=== PATIENT | male | born 1975 | race African-American/Black ===

== ENCOUNTER 2018-03-22 11:53 | Observation (INO) | payer OTHER, SELFPAY ==
[~2018-03-22 11:53] MED LIST: ISOVUE-370 76%-LOCM 1 ML ONE
[2018-03-22 12:46] LABS: Mean Corpuscular HGB CONC 33.3 g/dL (32.0-36.0); Mean Corpuscular Hemoglobin 26.2 pg (27.0-31.0); Mean Corpuscular Volume 78.7 fL (78.0-98.0); Mean Platelet Volume 9.3 fL (7.4-10.4); Platelet Count 260 thou/uL (130-400); Red Blood Cell (RBC) Count 5.36 mill/uL (4.70-6.10); White Blood Cell (WBC) Count 3.8 thou/uL (4.8-10.8)
[2018-03-22 12:59] LABS: ALT (SGPT) 20 U/L (8-55); AST (SGOT) 19 U/L (5-34); Albumin 4.1 g/dL (3.5-5.0); Alkaline Phosphatase 77 U/L (40-150); Anion Gap 14 mmol/L (10-20); BUN (Urea Nitrogen) 16 mg/dL (8.9-20.6); Bilirubin, Total 0.2 mg/dL (0.2-1.2); CK (CPK) 206 U/L (30-200); Calc. Creatinine Clearance 0 mL/min (70-130); Calcium 9.4 mg/dL (7.8-10.44); Carbon Dioxide 23 mmol/L (22-29); Chloride 103 mmol/L (98-107); Estimated GFR-MDRD 71; Globulin 3.9 g/dL (2.4-3.5); Glucose 121 mg/dL (70-105); Lipase 31 U/L (8-78); Potassium 3.3 mmol/L (3.5-5.1); Sodium 137 mmol/L (136-145)
[2018-03-22 13:04] LABS: CKMB 0.7 ng/mL (0-6.6); Troponin I 0.013 ng/mL (< 0.028)
[2018-03-22 13:14] LABS: Eosinophils 1 % (0-10); Lymphocytes 69 % (21-51); MDiff Complete? YES; Monocytes 8 % (0-10); Neutrophil 22 % (42-75); PLT Morphology Comment Appears Adequate
[2018-03-22] MEDS ORDERED: Lorazepam 2 MG/ML VIAL ONE (13:33)
--- NOTE | 2018-03-22 13:38 | RAD ---
UPRIGHT PORTABLE CHEST 1 VIEW: Date: 03/22/18 HISTORY: 42-year-old male with history of chest pain and abdominal pain. COMPARISON: 03/27/13. FINDINGS: Monitor leads overlie the chest. Heart size within normal limits. Right rib deformities with some ass ociated sclerosis, stable. No confluent pneumonia, overt edema, or pleural effusion. IMPRESSION: No acute intrathoracic disease. Right rib deformities with some associated sclerosis. POS: [facility]
[2018-03-22] MEDS ORDERED: diphenhydrAMINE 25 MG CAP ONE (14:03)
[2018-03-22] MEDS ORDERED: Metoclopramide HCl 10 MG/2 ML VIAL ONE (14:03)
--- NOTE | 2018-03-22 14:49 | CT ---
ABDOMEN AND PELVIC CT SCAN WITH IV CONTRAST: History: 42-year-old male with history of abdominal pain. Comparison: 02-02-17 FINDINGS: There is again noted to be a stable sclerotic margin expansile process in what appears to be the 7th right lateral rib, unchanged from the prior study. The lung bases appear clear. There is a 0.8 cm cristian meter focus of minimal increased nodular enhancement in the anterior right lobe of the liver, probabl y a very small flash-filling benign hemangioma, stable from the prior study. There is a suggestion of some mild fatty change in the liver with some fatty sparring adjacent to the gallbladder. The gallbl adder, pancreas, spleen, and adrenal glands are unremarkable. No evidence for renal calculus or acute obstruction. Normal appearing appendix. No intraabdominal mass, abscess, adenopathy or abnormal f luid collection. Moderate to severe lumbar spinal canal stenosis at L4-5. IMPRESSION: No significant acute process in the abdomen or pelvis. Stable expansile right rib bone lesion which i s nonaggressive and unchanged from 02-02-17. Small stable focal area of contrast enhancement in the rig ht lobe of the liver, probably a small flash-filling benign hemangioma. Probable mild fatty changes i n the liver. No evidence for other significant acute process in the abdomen or pelvis. POS: [facility]
[2018-03-22] MEDS ORDERED: Ondansetron PF 4 MG/2 ML Vial ONE (15:33)
[2018-03-22] MEDS ORDERED: Labetalol HCl 100 MG/20 ML VIAL ONE (16:00)
--- NOTE | 2018-03-22 16:22 | CT ---
BRAIN CT WITHOUT IV CONTRAST: Date: 03/22/18 HISTORY: 42-year-old male with abdominal pain, elevated blood pressure. FINDINGS: This exam was obtained about 1.5 hours after a prior postcontrast study, so there is some minimal res idual contrast within the brain vasculature. No focal mass or midline shift. No intra or extra-axial hemorrhage. Sinuses and mastoids are clear. IMPRESSION: No acute intracranial process. No mass or bleed. POS: [facility]
[2018-03-22] MEDS ORDERED: hydrALAZINE 20 MG/ML VIAL ONE (16:26)
[2018-03-22 18:06] LABS: Troponin I 0.021 ng/mL (< 0.028)
[2018-03-22] MEDS ORDERED: Ondansetron PF 4 MG/2 ML Vial IVP PRN (19:20)
[2018-03-22] MEDS ORDERED: Ondansetron ODT 4 MG TAB SL PRN (19:20)
[2018-03-22] MEDS ORDERED: hydrALAZINE 20 MG/ML VIAL SLOW IVP PRN (19:22)
[2018-03-22] MEDS ORDERED: Acetaminophen 325 MG TAB PO PRN (19:22)
[2018-03-22] MEDS ORDERED: Calcium Carbonate 500 MG ChewTAB PO PRN (19:22)
[2018-03-22] MEDS ORDERED: Sodium Chloride 0.9% 1,000 ML IV SCH (19:30)
[2018-03-22] MEDS ORDERED: Potassium Chloride 20 MEQ TAB PO SCH (19:45)
[2018-03-22] MEDS: Metoprolol Tartrate 25 MG TAB PO SCH (20:19)
[2018-03-22 20:46] LABS: Troponin I 0.026 ng/mL (< 0.028)
[2018-03-22] MEDS ORDERED: Lorazepam 2 MG/ML VIAL SLOW IVP PRN (22:08)
--- NOTE | 2018-03-23 01:26 | HP ---
PRIMARY CARE PHYSICIAN: [facility]. CHIEF COMPLAINT: Feeling weird. HISTORY OF PRESENT ILLNESS: Mr. Newman is a pleasant 42-year-old gentleman that has a history of hy pertension. He says he has had hypertension since he has been 17 years old. He says that a few maggie hs ago, he lost his job and as a result, he has not been able to get his medications. He started "no t feeling well" several months ago and says that he had some pressure behind his eyes yesterday and n ot feeling well is a constellation of symptoms of headache pressure, abdominal discomfort, nausea, an d just generally poor well being. He says that he went to the [facility], and they prescr ibed him a blood pressure medicine, I believe it was hydrochlorothiazide. He is not sure which medic ation he got first. Then, says that he came back to have some lab work done and they checked his blo od pressure and put him on 2 other additional medications, possibly metoprolol and clonidine at that time, he brings the bottles in. He says that after being given the medications, he actually started feeling worse. He was starting having some nausea, vomiting, feeling lightheaded and some chest pain . For this reason, he came to the emergency room. There, he was found to have fluctuating blood pre ssure, but most of all it was elevated, sometimes as high as the 160-180/100 diastolic. He also had a CT scan of the brain as well as CT scan of the abdomen which were essentially negative. Lab work w as significant for slightly low potassium and an elevated creatinine, but otherwise no other worrisom e findings. He is felt to have hypertensive urgency and possibly side effects to medications as the cause of his symptoms and is being placed in observation for this. REVIEW OF SYSTEMS: The systems were reviewed and are negative except for that mentioned in the histo ry of present illness. PAST MEDICAL HISTORY: Significant for hypertension. 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 He has even has had a bone marrow biopsy done to eval uate this. PAST SURGICAL HISTORY: Bone marrow biopsy. ALLERGIES: He says he believes is lisinopril, but he is not sure. SOCIAL HISTORY: He is single. He has 5 children. He is a nonsmoker and nondrinker. FAMILY HISTORY: Significant for hypertension, coronary artery disease, diabetes, and kidney disease, all in his mother. CURRENT MEDICATIONS: Include hydrochlorothiazide 12.5 mg daily, metoprolol 25 mg twice a day and mary nidine 0.1 mg twice daily. PHYSICAL EXAMINATION: GENERAL: He is alert and oriented. He appears to be in no acute distress. He is well-developed, we ll-nourished. He has a slightly flat affect and he makes very poor eye contact. VITAL SIGNS: Blood pressure currently is 138/73, heart rate 63, respiratory rate is 16, temperature is 98.0. HEENT: Pupils are equal, round, and reactive. Extraocular muscles are intact. His sclerae are anic teric. Throat: There was no erythema, no exudates. Ears: Tympanic membranes are pearly quiñones. The re was no fluid behind the drum. There was no redness. NECK: There is no adenopathy, no bruits, no jugular venous distention. LUNGS: Clear to auscultation. There was no wheezing, no rales, no rhonchi. CARDIOVASCULAR: He had a normal S1, S2. There is no S3 or S4. No murmurs, clicks or rubs. ABDOMEN: Slightly obese, it is soft, it is nontender, nondistended. Positive for bowel sounds. The re is no rebound, no guarding. EXTREMITIES: There is no clubbing, cyanosis, no edema, no joint tenderness, no joint effusions. No warmth. He has got palpable dorsalis pedis pulses bilaterally. NEUROLOGIC: His cranial nerves II-XII are grossly intact. His muscle strength is 5/5 in both his up per and lower extremities. SKIN/INTEGUMENT. There are no skin changes. No rash. LABORATORY DATA AND IMAGING DATA: White blood cell count 3.8, hemoglobin 14.0, hematocrit is 42.1, p latelet count was 260. D-dimer 0.39. Sodium 137, potassium 3.3, chloride is 103, CO2 is 23, BUN of 16, creatinine 1.34, glucose is 124, lipase is 31. On his chest x-ray by my reading, it is mild card iomegaly, increased pulmonary vascular markings. On his EKG, he has got sinus rhythm, the rate is 63 . He had some T-wave inversions in lead 1 and aVL, as well as V5 and V6. This is also by my reading . ASSESSMENT AND PLAN: This is a pleasant 42-year-old gentleman that presents to the emergency room wi th vague complaints, but prominent appears to be a headache primarily and some feeling dizzy, lighthe aded, and some pressure behind the eyes. This is likely related to poorly controlled blood pressure. Some of his symptoms could be related to side effects of medications as well. Therefore, he will b e placed in observation for hypertensive urgency. We will restart metoprolol and hydrochlorothiazide . However, we will also add potassium supplementation as his potassium is slightly low. Clonidine w ill be discontinued as this is possibly causing some of his side effects and consider adding amlodipi ne in its place. Possible acute on chronic kidney disease versus chronic kidney disease stage 1. We will reassess norberto leung in the a.m. after his blood pressure is better controlled and we will also give him a little bit of fluid to see if this improves.
[2018-03-23 03:50] VITALS: BMI 37.5
[2018-03-23 04:55] LABS: #Lymphocytes 1.3 thou/uL (1.20-3.40); #Monocytes 0.3 thou/uL (0.11-0.59); #Neutrophils 1.8 thou/uL (1.40-6.50); %Basophils 0.2 % (0.0-1.0); %Eosinophils 0.1 % (0.0-10.0); %Lymphocytes 39.5 % (21.0-51.0); %Monocytes 8.5 % (0.0-10.0); %Neutrophils 51.7 % (42.0-75.0); Hemoglobin 13.3 g/dL (14.0-18.0); Mean Corpuscular HGB CONC 32.5 g/dL (32.0-36.0); Mean Corpuscular Hemoglobin 25.8 pg (27.0-31.0); Mean Corpuscular Volume 79.3 fL (78.0-98.0); Mean Platelet Volume 9.6 fL (7.4-10.4); Platelet Count 242 thou/uL (130-400); RBC Distribution Width 14.2 % (11.5-14.5); Red Blood Cell (RBC) Count 5.18 mill/uL (4.70-6.10); White Blood Cell (WBC) Count 3.4 thou/uL (4.8-10.8)
[2018-03-23 05:21] LABS: Anion Gap 16 mmol/L (10-20); BUN (Urea Nitrogen) 11 mg/dL (8.9-20.6); Calc. Creatinine Clearance 160 mL/min (70-130); Carbon Dioxide 20 mmol/L (22-29); Chloride 100 mmol/L (98-107); Estimated GFR-MDRD Greater than 90; Glucose 104 mg/dL (70-105); Potassium 3.7 mmol/L (3.5-5.1); Sodium 132 mmol/L (136-145)
[2018-03-23] MEDS: Metoprolol Tartrate 25 MG TAB PO SCH (08:50)
[2018-03-23] MEDS ORDERED: Amlodipine 5 MG TAB PO SCH (09:00)
[2018-03-23] MEDS ORDERED: Hydrochlorothiazide 25 MG TAB PO SCH (09:00)
[2018-03-23 11:36] VITALS: TEMP 98.4
[2018-03-23 12:34] VITALS: BP 128/68
--- NOTE | 2018-03-24 01:28 | DIS ---
DATE OF ADMISSION: 03/22/2018 DATE OF DISCHARGE: 03/23/2018 PRIMARY CARE PHYSICIAN: [facility]. CONSULTANTS: None. CODE STATUS: FULL. PROCEDURES: None. DISCHARGE DIAGNOSIS: Hypertension. REVIEW OF SYSTEMS: Patient was seen by me this morning. Denies any complaints and all systems were reviewed and negative. PHYSICAL EXAMINATION: VITAL SIGNS: Temperature 98.4, pulse 68, respirations 16, pulse ox is 97 on room air, blood pressure 145/78. GENERAL: He is alert and oriented. He is in no acute distress. He is well-developed and well-nikita shed. Blood pressure as stated above. HEENT: Pupils are equal, round, and reactive. Extraocular muscles are intact. NECK: No bruits, no JVD. LUNGS: Clear to auscultation. No wheezing, rales, or rhonchi. CARDIOVASCULAR: Normal S1, S2. No murmurs, clicks, or rubs. ABDOMEN: Slightly obese, nontender to palpation. Positive for bowel sounds. No rebound, no guardin g. EXTREMITIES: No clubbing, cyanosis, no edema, moves all extremities well. NEUROLOGIC: Cranial nerves II through XII are grossly intact. Muscle strength is 5/5 to all four ex tremities. SKIN: No skin change. Warm, dry, and intact. HOME MEDICATIONS: Patient was on Lopressor 25 mg p.o. b.i.d., clonidine 0.1 mg b.i.d. MEDICATIONS ON DISCHARGE: Lopressor 25 mg p.o. b.i.d., hydrochlorothiazide 12.5 mg p.o. daily. HOSPITAL COURSE: Patient reported to the ER on the day of admission with a history of hypertension r eports that several months ago, he lost his job and as a result he has not been able to get his medic ations. He reports going to [facility] in the last several months to get some medication reports on Monday. His medication was changed to clonidine and Lopressor. He reports he started having so me nausea, vomiting, feeling lightheaded, and some chest pain. For this reason, he came to the [facility] ency room and found to have a fluctuating blood pressure. Most of all of it was elevated at times an d then diastolic in the 100s, systolic in the 160 to 180 range. He had a CT scan of his brain and of his abdomen, which were negative. Lab work was significant for slightly low potassium and elevated creatinine, which was corrected on today's lab work, otherwise, no findings. Patient had a chest x-r ay, which was no acute distress. Troponins x3 was negative. D-dimer was also negative. Patient sta thor today he feels better and is agreeable to go home. He will need to follow up with [facility] in 1 week and have checked his blood pressure at home and write his blood pressure down and take german t with him to the [facility]. Patient is allergic to AMLODIPINE. CONDITION: Stable. DISCHARGE INSTRUCTIONS: Patient will be discharged to home. REFERRAL: Within [facility] week to [facility]
== END 2018-03-23 14:34 | disposition home or self-care (01) ==
LOC: ERS 11:53 → 2SW 17:04
PROVIDERS: ADMIT Internal Medicine; ATTEND Internal Medicine
DX: I10 Essential (primary) hypertension (principal); Z79.899 Other long term (current) drug therapy
CPT/HCPCS: 36415; 70450; 71045; 74177; 80048; 80053; 82553; 83690; 84484; 85025; 85379; 93005; 96361; 96365; 96366; 96375; G0378; J0360; J2060; J2405; J2765; Q0162